=== PATIENT | female | born 1965 | race Caucasian/White ===

== ENCOUNTER → 2020-04-20 10:46 | Outpatient (BNVA) | payer BC, SELFPAY | PROVIDERS: Visit Provider Nurse Practitioner Family | DX: Z20.828 Contact with and (suspected) exposure to other viral communicable diseases (principal); J06.9 Acute upper respiratory infection, unspecified | CPT/HCPCS: 87635 ==

== ENCOUNTER → 2020-10-28 10:45 | Outpatient (BNVA) | payer BC, SELFPAY | PROVIDERS: Visit Provider Family Medicine | DX: M25.50 Pain in unspecified joint (principal); E03.9 Hypothyroidism, unspecified | CPT/HCPCS: 84550 ==

== ENCOUNTER → 2020-12-25 00:01 | Outpatient (BNVA) | payer BC, SELFPAY | PROVIDERS: Visit Provider Family Medicine | DX: E03.9 Hypothyroidism, unspecified (principal); M25.50 Pain in unspecified joint; M65.311 Trigger thumb, right thumb; M65.312 Trigger thumb, left thumb | CPT/HCPCS: 80053; 80061; 84443 ==

== ENCOUNTER → 2021-01-25 08:07 | Outpatient (BNVA) | payer BC, SELFPAY | PROVIDERS: Referring Provider Family Medicine; Visit Provider Specialist | DX: M19.042 Primary osteoarthritis, left hand (principal); M65.30 Trigger finger, unspecified finger | CPT/HCPCS: 73130 ==

== ENCOUNTER → 2021-02-19 08:53 | Outpatient (BNVA) | payer BC, SELFPAY | PROVIDERS: Visit Provider Internal Medicine | DX: M25.9 Joint disorder, unspecified (principal); M79.641 Pain in right hand; M79.642 Pain in left hand; Z11.59 Encounter for screening for other viral diseases; Z79.899 Other long term (current) drug therapy; M65.30 Trigger finger, unspecified finger; E03.9 Hypothyroidism, unspecified; Z86.16 Personal history of COVID-19 | CPT/HCPCS: 36415; 99204 ==

== ENCOUNTER 2021-02-19 10:59 | Outpatient (CLI) | payer BC, SELFPAY ==
--- NOTE | 2021-02-19 11:07 | XR_ITS ---
WS: [email or web address] Exam: XR foot LT 2V [id number] Date/Time of Exam: 02/19/2021 11:19 AM Reason For Exam: M25.50 - Pain in unspecified joint No fracture or dislocation noted. No radiopaque soft tissue foreign body seen. Small plantar heel spu r. Thickening and calcification in the Achilles tendon that may represent chronic tendinitis. Minimal DJD. XR/XR foot LT 2V [id number] IMPRESSION: 1. No fracture or dislocation. 2. Minimal degenerative changes. Plantar heel spur. Calcification and thickenin g of the Achilles tendon that might reflect chronic tendinitis.
--- NOTE | 2021-02-19 11:07 | XR_ITS ---
WS: [email or web address] Exam: XR sacroiliac jts m 3V [id number] Date/Time of Exam: 02/19/2021 11:19 AM Reason For Exam: L40.9 - Psoriasis, unspecified No fracture or dislocation. The SI joints are open. Minimal degenerative changes. No sign of bone bentley truction. XR/XR sacroiliac jts m 3V [id number] IMPRESSION: 1. Mild bilateral SI joint DJD. No other significant finding.
--- NOTE | 2021-02-19 11:07 | XR_ITS ---
WS: [email or web address] Exam: XR cervical spine fl/ex [id number] Date/Time of Exam: 02/19/2021 11:19 AM Reason For Exam: M79.641 - Pain in right hand No fracture or dislocation. No significant flexion or extension instability. Normal paraspinal soft t issues. XR/XR cervical spine fl/ex [id number] IMPRESSION: 1. No flexion or instability identified. Negative.
--- NOTE | 2021-02-19 11:07 | XR_ITS ---
WS: [email or web address] Exam: XR foot RT 2V [id number] Date/Time of Exam: 02/19/2021 11:19 AM Reason For Exam: M25.50 - Pain in unspecified joint No fracture or dislocation. Mild DJD at the first MP joint. No radiopaque foreign bodies are seen. Sm all heel spurs. XR/XR foot RT 2V [id number] IMPRESSION: 1. No fracture or dislocation. 2. Mild degenerative changes. Calcaneal spurs.
== END 2021-02-19 11:00 | disposition home or self-care (01) ==
PROVIDERS: PCP Family Medicine; Visit Provider Internal Medicine
DX: L40.9 Psoriasis, unspecified (principal); M79.641 Pain in right hand; M79.642 Pain in left hand; M25.50 Pain in unspecified joint
CPT/HCPCS: 72040; 72202; 73620; 82306; 82310; 82550; 82728; 83540; 83970; 84100; 84155; 84165; 85651; 86140; 86704; 86803; 86812; 87340

== ENCOUNTER → 2021-03-05 10:11 | Outpatient (BNVA) | payer BC, SELFPAY | PROVIDERS: PCP Family Medicine; Visit Provider Internal Medicine | DX: M25.50 Pain in unspecified joint (principal); R76.8 Other specified abnormal immunological findings in serum; E03.9 Hypothyroidism, unspecified; M65.311 Trigger thumb, right thumb; M65.312 Trigger thumb, left thumb | CPT/HCPCS: 99214 ==

== ENCOUNTER 2021-07-26 07:30 | Outpatient (CLI) | payer BC, SELFPAY ==
--- NOTE | 2021-07-26 08:00 | MR_ITS ---
WS: [id number] MRI RIGHT HAND without CONTRAST. COMPARISON: Radiograph 01/25/2021 Multiplanar, multisequence imaging is performed without contrast. No focal marrow edema or fracture. There is a very subtle erosion in the first metacarpal head. The r emaining metacarpal heads are normal. Mild joint space narrowing at the first metacarpal phalangeal j oint with near bone upon bone. At this location there is increase fluid surrounding approximately 50% of the flexor pollicis longus tendon. Fluid is localized to the first metacarpal phalangeal joint. T here is a small accessory ossicle which does abut the flexor pollicis longus tendon. No signal abnormalities within the remaining tendons. No soft tissue abnormalities. No mass. MR/MR hand RT wo con* [id number] IMPRESSION: 1. Mild joint space narrowing with osteophytes involving the first metacarpal phalangeal joint. 2. There is an additional small erosion involving the first metacarpal head. 3. Small amount of soft tissue edema contacting and adjacent to the flexor osbaldo licis longus tendon at the first metacarpal phalangeal joint. The tendon otherw ise is intact.
== END 2021-07-26 07:31 | disposition home or self-care (01) ==
LOC: RAD 07:31
PROVIDERS: PCP Family Medicine; Visit Provider Internal Medicine
DX: M65.311 Trigger thumb, right thumb (principal); M79.641 Pain in right hand; R60.0 Localized edema; M85.841 Other specified disorders of bone density and structure, right hand
CPT/HCPCS: 73218

== ENCOUNTER → 2022-02-14 08:45 | Outpatient (BNVA) | payer BC, SELFPAY | PROVIDERS: PCP Family Medicine; Visit Provider Family Medicine | DX: E03.9 Hypothyroidism, unspecified (principal); Z23 Encounter for immunization | CPT/HCPCS: 80053; 84443; 85025 ==

== ENCOUNTER 2025-03-18 07:54 | Outpatient (CLI) | payer BC, SELFPAY ==
--- NOTE | 2025-03-18 08:02 | MM_ITS ---
WS: [email or web address] BILATERAL 3D TOMOSYNTHESIS DIGITAL SCREENING MAMMOGRAPHY WITH CAD CLINICAL INFORMATION: SCREENING HISTORY: Screening mammogram. No current complaints. COMPARISON: 2019 TECHNIQUE: Bilateral CC and MLO views. FINDINGS: Scattered fibroglandular densities bilaterally. 5 mm ovoid nodular density along the posterior nipple line best seen on the MLO view. Recommend LEFT breast diagnostic mammography and ultrasound if persistent. Scattered bilateral punctate calcifications. Unremarkable RIGHT breast MM/MM scr tomosynthesis [id number] IMPRESSION: DENSITY: There are scattered areas of fibroglandular density. BI-RADS: 0 - Incomplete: Need additional imaging evaluation. FOLLOW UP: Need Additional Imaging Recommend LEFT breast diagnostic mammography and ultrasound if persistent.
== END 2025-03-18 07:55 | disposition home or self-care (01) ==
LOC: RAD 07:55
PROVIDERS: PCP Family Medicine; Visit Provider Nurse Practitioner Family
DX: Z12.31 Encounter for screening mammogram for malignant neoplasm of breast (principal); R92.323 Mammographic fibroglandular density, bilateral breasts; R92.1 Mammographic calcification found on diagnostic imaging of breast
CPT/HCPCS: 77063; 77067